=== PATIENT | female | born 1960 | race Caucasian/White ===

== ENCOUNTER 2022-01-07 08:51 | Outpatient (REF) | payer MEDICAID, SELFPAY ==
--- NOTE | 2022-01-07 08:20 | SKI_PTH ---
PATIENT: Vanita Mayo LOC: [facility] U#:[id number] AGE/SX: 61/F ROOM: RE01/07/[address]: Mark Panchal MD : 1960 BED: DIS: 01/07/2022 SPEC #: [id number] RECD: 01/07/22 17:32 STATUS: ARAMIS CRUZ #: [id number] JANIS: 01/07/22 08:[address]: Mark Panchal DEPT: Surgical Specimen RECD BY: Jessie Alexander ENTERED: 01/07/22 17:33 SP TYPE: DEREK MARIN DR: Corin Martinez Tissues: 1 - SKIN BIOPSY(SHAVE/PUNCH) 2 - SKIN BIOPSY(SHAVE/PUNCH) Procedures: SKIN LEVEL 4 Comments: [id number]
== END 2022-01-07 08:52 | disposition home or self-care (01) ==
LOC: LBN 08:51
PROVIDERS: PCP Physician Assistant Medical; Visit Provider Otolaryngology
DX: L82.1 Other seborrheic keratosis (principal); D18.01 Hemangioma of skin and subcutaneous tissue
CPT/HCPCS: 88305